=== PATIENT | female | born 2000 | race Caucasian/White ===

== ENCOUNTER 2022-04-07 01:34 | Emergency (ER) | payer OTHER, SELFPAY ==
[2022-04-07 05:36] LABS: Appearance Urine Clear; Color Urine Yellow; Glucose Urine UA Negative (Negative); Leukocyte Esterase Urine Trace (Negative); Nitrite Urine Negative (Negative); Urine Blood Trace (Negative); Urine Ketones Trace mg/dL (Negative); Urine Protein Negative (Neg-Trace)
[2022-04-07 05:41] LABS: Bacteria Urine None Seen (None Seen); Hyaline Casts Urine 0-2 /LPF (0-2); WBC Urine 0-5 /HPF (0-5)
[2022-04-07 05:54] LABS: COVID-19 Test Negative (Negative)
[2022-04-07 06:18] VITALS: BP 119/68; BP 142/90; PULSE 132; PULSE 152; RESP 22; TEMP 38.7; O2SAT 98; O2SAT 99; BMI 34.4
[2022-04-07 06:36] VITALS: BP 132/69; PULSE 95; RESP 18; TEMP 36.8; O2SAT 98
== END 2022-04-07 06:39 | disposition home or self-care (01) ==
PROVIDERS: Emergency Provider Emergency Medicine
DX: B34.9 Viral infection, unspecified (principal); R50.9 Fever, unspecified; Z20.822 Contact with and (suspected) exposure to COVID-19
CPT/HCPCS: 81001; 87635; 99282; 99283

== ENCOUNTER 2023-12-17 23:04 | Emergency (ER) | payer OTHER, SELFPAY ==
[2023-12-17 23:10] VITALS: BP 160/90; PULSE 88; O2SAT 98
[2023-12-17 23:12] VITALS: BP 137/80; PULSE 154; RESP 18; TEMP 36.2; O2SAT 99; BMI 29.0
--- NOTE | 2023-12-17 23:28 | ECG_ITS ---
Test Reason : ANXIETY Blood Pressure : / mmHG Vent. Rate : 126 BPM Atrial Rate : 000 BPM P-R Int : 000 ms QRS Dur : 078 ms QT Int : 410 ms P-R-T Axes : 000 057 060 degrees QTc Int : 593 ms Sinus tachcyardia Nonspecific ST-T changes. Abnormal ECG No previous ECGs available Referred By: Sam Jiménez Electronically Signed By:Jeffery Kelly
--- NOTE | 2023-12-18 00:11 | ED_ITS ---
HPI - General Adult General Chief complaint: Behavioral Concerns Stated complaint: bug bite, hx of panic attacks, feels one coming on Time Seen by Provider: 12/17/23 23:19 Source: patient Mode of arrival: ambulatory Limitations: no limitations History of Present Illness HPI narrative: 23 yold female with pmh of Aspergers syndrome and panic disorder presens to the ED for panic attack. Patient states she had a panic attack after being bit by her bug on the right thigh. Patient states her cat was chasing around the park and the bug landed on the patient the on right thigh. Patient states she has severe anxiety around bugs so she started screaming and panicking. Patient called ambulance due to panic attack. Related Data Allergies Allergy/AdvReac Type Severity Reaction Status Date / Time No Known Allergies Allergy Verified 12/17/23 23:17 Review of Systems Review of Systems: panic attack. anxiety. roight thigh bug bite Yes all other systems are reviewed and are negative PMFSH Social History Social History Smoked in Last 30 Days: No Use of substances other than those prescribed or required for medical reasons: No Advance Directives: No Advance Directives Information Provided: No Do you have a plan to hurt others: No Plan Physical Exam ED Vital Signs: Vital Signs - 24 hr 12/17/23 23:12 12/18/23 04:15 12/18/23 06:15 Temperature 97.1 F 97.9 F 98.2 F Pulse Rate 154 H 139 H 88 Respiratory Rate 18 16 16 Blood Pressure 137/80 124/78 130/70 Pulse Oximetry 99 100 100 Oxygen Delivery Method Room Air Room Air BMI result Body Mass Index 29.0 Const General: cooperative, healthy appearing, comfortable, no acute distress, well developed, alert and awake Orientation/consciousness: oriented to person, oriented to place, oriented to time and patient oriented x3 HENMT Head: Yes normal to inspection, Yes No palpable skull fracture present and Yes normocephalic Eyes General: appearance normal, both eyes and all related structures Neck Neck: Yes normal visual inspection, Yes full ROM, Yes no lymphadenopathy, Yes no meningeal signs, Yes trachea midline, Yes supple, No anterior neck swelling and No tender Chest Chest palpation & inspection: normal inspection of the chest and normal palpation of entire chest wall Resp Effort & Inspection: normal respiratory effort and able to speak in complete sentences Auscultation: clear to auscultation bilaterally Cardio Jugular venous distension: no JVD Heart sounds: S1 normal heart sound present and S2 normal heart sound present GI Inspection: Yes normal to inspection Palpation (GI): Soft to palpation, not firm, nontender, no guarding and not rigid General: Yes no CVA tenderness Back/Spine/Pelvis Back: no CVA tenderness and No back tenderness Skin General skin exam: no rashes or lesions noted, elasticity normal and turgor normal Neuro General: oriented to person, oriented to place, oriented to time, patient oriented x3, gait normal, tone normal, moves all extremities, Normal light touch and pain sensation, no meningeal signs, no focal motor deficits, CN's II-XI intact bilaterally and normal sensation to monofilament Extrem Other: Right thigh negative for signs of bite. Right lower extremity negative for edema, bite vincent, fluctuance, hives, mass or mass palpation, warmth, deformity, or crepitus. Right lower extremity normal motor/neuro/vascular exam intact. Left lower extremity: Motor/neuro/vascular exam intact. Normal. General: Yes normal to inspection, Yes full ROM and Yes capillary refill normal Psych Appearance: grossly normal, well kempt and not disheveled Medical Decision Making Medical Decision Making MDM Narrative: 23-year-old female presents to ED panic attack after bug bite. Physical exam negative for signs of allergic reaction or cellulitis from insect bite. Patient's tachycardia to severe anxiety. Patient moves around around talking and crying. EKG showed sinus tach. Patient now calm. EKG heart 126. NO Further evaluation. Not suspecting dehydration, PE, myocardial infarction, Pne umonia, pneumo/hemothorax electrolyte deficiency.. Patient does not want meds to calm her down. Patient will self soothe. Patient was sleeping in the morning be discharged. Patient has no ride home. Negative for signs of cellulitis, allergic reaction, anaphylaxis. Patient does not need care team. patient is sleeping in bed. Differential Diagnosis Differential Diagnoses: The differential diagnosis associated with the presentation includes (Panic attack, anxiety, bug bite.) Admission/Observation Consideration of admission/observation: Escalation of care including admission/observation considered Independent Interpretation I performed an independent interpretation of an: EKG (Accelerated junctional rhythm. Ventricular rate 126) Independent Historian Clinical information obtained from an independent historian. History obtained from or confirmed by: Other (patient) External Record Review External record reviewed: Other (prior visits) Discharge Plan Discharge Clinical Impression: Panic disorder Patient Disposition: Home, Self-Care Instructions: Panic Disorder (ED), Anxiety (ED) Additional Instructions: Return to the ED for any redness, pus discharge, foul odor, swelling, mass, calf pain, chest pain, shortness breath, bluish discoloration, fever, chills home half-way earlier tongue, or any other concerning symptoms. Recommend follow- up with primary care provider. Interventions: ED Discharge Assessment Last Done: 12/18/23 06:15 Discharge Date/Time: 12/18/23 06:16 Print Language: Barbadian
[2023-12-18 04:15] VITALS: BP 124/78; PULSE 139; RESP 16; TEMP 36.6; O2SAT 100
[2023-12-18 06:15] VITALS: BP 130/70; PULSE 88; RESP 16; TEMP 36.8; O2SAT 100
== END 2023-12-18 06:16 | disposition home or self-care (01) ==
PROVIDERS: Emergency Provider Emergency Medicine Emergency Medical Services
DX: F41.0 Panic disorder [episodic paroxysmal anxiety] (principal); F84.5 Asperger's syndrome
CPT/HCPCS: 93005; 99283; 99284

== ENCOUNTER → 2023-12-17 23:28 | Outpatient (BNV) | payer OTHER, SELFPAY | PROVIDERS: Emergency Provider Emergency Medicine Emergency Medical Services; Visit Provider Internal Medicine Cardiovascular Disease | DX: R94.31 Abnormal electrocardiogram [ECG] [EKG] (principal) | CPT/HCPCS: 93010 ==

== ENCOUNTER 2025-01-14 13:24 | Outpatient (AMB) | payer OTHER, SELFPAY ==
--- NOTE | 2025-01-14 13:39 | A.OFFVIS_ITS ---
VS Expanded 01/14/25 14:06 01/21/25 11:58 Height 5 ft 6 in 5 ft 6 in Weight 151 lb 0.2 oz 151 lb BMI 24.4 24.4 Intake Visit Reasons: Decreased appetite/ wt loss Allergies No Known Allergies Allergy (Verified 12/17/23 23:17) Nutrition Presentation Details: Pt presents for MNT for decreased appetite and weight loss Per doctors's note Pt has lost 30 lbs in a yrs time, and in 12/2023 at 172 lb, 11/2024 at 145 lbs and Wt today 01/2025 at 152 lbs Pt reports living by self, reports having hx of fear of food related to increased GERD sx including vomiting and not able to tolerate anything due to vomiting. Pt reports gradually including some soft foods. Pt reports meeting with a therapist as well d/t anxiety/fears Reports vomiting last night trying to get rid of tonsil stone Physical activity: daily life activities MVI - not taking has 3 ensure a day everyday plus other soft foods 24 hr food recall AM ensure (240 calorie, 8 g prot, 30 g carb) snack pudding cups with whipped cream (has 2 /day ) ad ensure dinner instant mashed potato with sour cream and ensure last night bowl of ice cream Pt has hx of Pre DM, Asperger Syndrome, PTSD, anxiety BS Monitoring Most Recent Diabetes Results: No Data to Display YTK-Ikhkuuf-Yn.Jeor Equation Height: 5 ft 6 in Weight: 151 lb Resting Metabolic Rate: 1447.99 Calculated Activity Level: Sedentary Calories Needed to Maintain Weight: 1737.59 Diagnosis Nutrition problem #1: inadequate protein energy (and inadequate food variety(protein/fruits/vegs)) As related to (etiology) #1: other (fear of trying new foods ) As evidenced by (sign/symptom) #1: other (related to hx of GERD symptoms leading to vomiting and wt loss) [facility] Medical History (Updated 01/21/25 @ 12:27 by Jayla Johnson, RD, LDN) Anxiety Asperger syndrome Pre-diabetes Assessment & Plan Assessment & Plan (1) Decreased appetite: Code(s): R63.0 - Anorexia Category: Medical Plan: Wt: 68 Kg ( 01/2025 ) Est kcal needs as per MSJ: 5756-2820 (40% carb, 30% protein/fat) Est fluid needs as per 25-30 ml/d: 1700 Est prot per day as per 1 g/kg bw: 50-70g Recommend fiber intake : 8-10 g per day and gradually increase to 14 g per 1000 calories Recommend sodium intake per day : less than 2300 mg Educated patient on: ( R = reviewed V = verbalizes understanding N/R = needs review N/A = not applicable * Working on including protein foods in current diet : Review * working on including soft fruits in the diet for fiber: R Next visit - Discuss switching to higher protein ensure option * Patient Instructions: Try to include lean protein food : example canned chicken or chicken in a pouch with canned carrots and instant mashed potato 1-2 scrambled eggs with 1 tbsp of spam (for flavor) and mashed potato snack try chobani yogurt and applesauce Coding Level of Care Code Nutr Indiv Intake (73114) Diagnoses Decreased appetite R63.0 Time Spent (min) 30
[2025-01-14 14:06] VITALS: BMI 24.4
[2025-01-21 11:58] VITALS: BMI 24.4
== END 2025-01-14 14:21 | disposition home or self-care (01) ==
LOC: HO.ENCR 13:25
PROVIDERS: PCP Family Medicine; Visit Provider Dietitian, Registered
DX: R63.0 Anorexia (principal)

== ENCOUNTER → 2025-01-14 13:24 | Outpatient (BNVA) | payer OTHER, SELFPAY | PROVIDERS: PCP Family Medicine; Visit Provider Dietitian, Registered | DX: R63.0 Anorexia (principal); R63.4 Abnormal weight loss; K21.9 Gastro-esophageal reflux disease without esophagitis; Z71.3 Dietary counseling and surveillance; Z68.24 Body mass index [BMI] 24.0-24.9, adult | CPT/HCPCS: 97802 ==

== ENCOUNTER 2025-06-25 09:55 | Outpatient (AMB) | payer OTHER, SELFPAY ==
--- NOTE | 2025-06-25 10:15 | A.OFFVIS_ITS ---
VS Expanded 06/25/25 10:18 Height 5 ft 6 in Weight 171 lb 1.259 oz BMI 27.6 Intake Visit Reasons: weight loss Allergies No Known Allergies Allergy (Verified 12/17/23 23:17) Nutrition Presentation Details: Pt presents for MNT follow-up Patient brings food record Meals continue to be the same, 3 Ensure original per day, pudding, instant mashed potatoes made with water and sour cream, popsicle. Patient reports fear of trying new foods, reports she is afraid of gagging. She is contemplating using a event specialist food demonstrator to try new foods with soft consistency. Patient reports working with a therapist for his helping her with trying new foods Reviewed importance of getting foods with protein, patient reads food labels very well and currently patient is not getting sufficient protein, she admits of increased intake of sweets thus leading to almost 20 lb weight gain since the last visit yogurt chobani with 15-20g protein (strained ) started this past week 24 hr food recall AM ensure (240 calorie, 8 g prot, 30 g carb) snack pudding cups with whipped cream (has 2 /day ) ad ensure dinner instant mashed potato with sour cream and ensure last night bowl of ice cream Pt has hx of Pre DM, Asperger Syndrome, PTSD, anxiety PFSH Medical History (Updated 01/21/25 @ 12:27 by Jayla Johnson, RD, LDN) Anxiety Asperger syndrome Pre-diabetes Assessment & Plan Assessment & Plan (1) Decreased appetite: Code(s): R63.0 - Anorexia Category: Medical Plan: Patient lacking protein in the diet, choosing carbohydrate sources of foods with minimal protein intake. It appears this has contributed to weight gain, 20 lb over 5 months. Patient reports working with a therapist Wt: 68 Kg ( 01/2025 ), 77 kg (07/08) Est kcal needs as per MSJ: 6925-1549 (40% carb, 30% protein/fat) Est fluid needs as per 25-30 ml/d: 1700 Est prot per day as per 1 g/kg bw: 50-70g Recommend fiber intake : 8-10 g per day and gradually increase to 14 g per 1000 calories Recommend sodium intake per day : less than 2300 mg Educated patient on: ( R = reviewed V = verbalizes understanding N/R = needs review N/A = not applicable * Working on including protein foods in current diet : Review * working on including soft fruits in the diet for fiber: R Next visit - Discuss switching to higher protein ensure option * Patient Instructions: Have a fairlife protein shake (replacing one Ensure original) per day (fair life protein shake has higher protein amount and less carbohydrates than the Ensure or original) Try banana with the protein shake - working on different flavors, textures Add 1-2 eggs to the rice , ok to blenderize after cooked with vegetable broth or chicken broth Reduce on sugars (popsicles , candies, sugary drinks) Coding Level of Care Code Nutr Indiv Subseq (10620) Diagnoses Decreased appetite R63.0 Time Spent (min) 30
[2025-06-25 10:18] VITALS: BMI 27.6
--- OUTSIDE RECORDS SUMMARY | 2025-06-25 11:36 | XMS_ITS | Clinical Summary ---
Author Organization [facility] Address [address] [place] [address] Care Team Providers Care Contract Design Agent Name Role Phone TamekaShayan Primary Care Provi gasper Allergies Active Allergy Reactions Criticality Noted Date Comments Sertraline Lightheadedness 02/03/2025 Medications * This document contains information received from the source organization and may not represent a complete record from that organization. No known medications Social History Tobacco Use Types Packs/Day Years Used Date Smoking Tobacco: Never Assessed Comments Unknown Sex and Gender Information Value Date Recorded Sex Assigned at Female 01/14/2025 9:33 AM EDT Legal Sex Female 8:29 AM EST Gender Identity Not on file Sexual Orientation Not on file Plan of Treatment Health Maintenance Due Date Last Done Comments HIV Screening 1999 Hepatitis C Screening 1999 Pap Smear 10/17/2023 10/16/2020 Alcohol/Substance Use Screening 08/14/2024 Depression Screening and Follow-Up 08/14/2024 Social Drivers of Health Mary ual Screening 08/14/2024 COVID-19 Vaccine ( - 2024-2 6 season) 2025 09/16/2021, 02/11/2021, 01/21/2021 Influenza Vaccine (#1) 2025 , 06/16/2020, 06/24/2019, Additional history exists DTaP,Tdap,and Td Vaccines (9 - Td or Tdap) 08/09/2034 08/09/2024, 06/15/2019, 03/22/2012, Additional history exists Hepatitis B Vaccines Completed 11/23/2000, 02/22/2000, 1999 Pneumococcal Vaccine: Pediat myranda (0-5 Years) and At-Risk Patients (6-50 Years) Completed 11/23/2000, 08/21/2000, 05/17/2000 HPV Vaccines Completed 10/03/2011, 05/14, 03/21/2011 Varicella Vaccines Completed 03/22/2012, 08/21/2000 Insurance [employer] Care Teams Contract Design Agent Relationship Specialty Start Date End Date Shayan English [address] [facility] [place] [phone] PCP - General 01/14/25
--- OUTSIDE RECORDS SUMMARY | 2025-06-25 11:36 | XMS_ITS | Clinical Summary ---
Author Organization [facility] Address [address] [place] [phone] Phone Care Team Providers Care Income Tax Investigator Name Role Phone Lauren Lara DO Primary Care Provider Unavaila ble Immunizations Immunization Administration Dates Next Due DTaP 5 11/25/2004, 1,02/22/2000,12/19,1999 H1N1 Nasal 05/28/2009 HPV, Quadrivalent 10/03/2011,05/31/2011,03/21/20 11 Hep B, ped/adol 11/23/2000,02/22/2000,1999 Hib (PRP-T) 11/23/2000, 0,1999,10/17 IPV 11/25/2004, 1,1999,10/17 Influenza, injectable, triva lent, preservative free 04/28/2014,05/25/2013,07/25/2012 MMR 11/25/2004,08/21/2000 Meningococcal Conj (Menactra) MCV4P 03/22/2012 Pneumococcal Conjugate 11/23/2000,08/21/2000,11/1999 Tdap 03/22/2012 Varicella 03/22/2012,08/21/2000 Social History Tobacco Use Types Packs/Day Years Used Date Smoking Tobacco: Never Comments:Never Smoker Comments Unknown Sex and Gender Information Value Date Recorded Sex Assigned at Not on file Legal Sex Female 6:35 PM EDT Gender Identity Not on file Sexual Orientation Not on file Last Filed Vital Signs Vital Sign Reading Time Taken Comments Blood Pressure - - Pulse 96 03/19/2013 10:53 AM EDT Temperature 36.8 C (98.3 F) 04/28/2014 8:24 AM EDT Respiratory Rate - - Oxygen Saturation - - Inhaled Oxygen Concentration - - Weight 82.6 kg (182 lb) 04/28/2014 8:24 AM EDT Height 165.1 cm (5' 5 ) 04/28/2014 8:24 AM EDT Body Mass Index 30.29 04/28/2014 8:24 AM EDT Plan of Treatment Health Maintenance Due Date Last Done Comments DTaP,Tdap,and Td Vaccines (7 - Td or Tdap) 03/22/2022 03/22/2012, 11/25/2004, 02/27/2001, Additional history exists Influenza Vaccines (#1) 2025 06/24/20, 09/12/2017, 05/03/2016, Additional history exists COVID-19 Vaccine ( season) 2025 HIB Vaccines Completed 11/23/2000, 11/12, 02/22/2000, Additional history exists Hepatitis B Vaccines Completed 11/23/2000, 02/22/2000, 1999 Pneumococcal Vaccine Completed 11/23/2000, 08/21/2000, 05/17/2000 IPV Vaccines Completed 11/25/2004, 02/11, 11/23/2000, Additional history exists MMR Vaccines Completed 11/25/2004, 08/21/2000 HPV Vaccines Completed 10/03/2011, 05/14, 03/21/2011 Varicella Vaccines Completed 03/22/2012, 08/21/2000 Meningococcal Vaccine Completed 05/17/2016, 012 Hepatitis A Vaccines Aged Out No long er eligible based on patient's age to complete this topic Men B Vaccine Aged Out No longer elig ible based on patient's age to complete this topic Care Teams Income Tax Investigator Relationship Specialty Start Date End Date Lauren Lara DO PCP - General 12/20/17
--- OUTSIDE RECORDS SUMMARY | 2025-06-25 11:36 | XMS_ITS | Encounter Summary ---
Author Organization [facility] [place] [address] Care Team Providers Care Keyboard Specialist Name Role Phone Shayan English MD Primary Care Pr ovider Encounter Details Date Type Department Care Team (Late st Contact Info) Description 08/09/2024 Nurse Triage Adult Medicine [address] [phone] Shirin Gordon RN Social History Tobacco Use Types Packs/Day Years Used Date Smoking Tobacco: Never Smokeless Tobacco: Never Alcohol Use Standard Drinks/Week Comments No 0 (1 standard drink = 0.6 oz pur e alcohol) Comments Unknown Sex and Gender Information Value Date Recorded Sex Assigned at Female 01/15/2025 3:02 PM EDT Legal Sex Female 7:22 AM EST Gender Identity Female 01/15/2025 3:02 PM EDT Sexual Orientation Straight 01/15/2025 3: 28 PM EDT documented as of this encounter Plan of Treatment Not on file documented as of this encounter Visit Diagnoses Not on filedocumented in this encounter Care Teams Keyboard Specialist Relationship Specialty Start Date End Date Shayan English MD [address] [place] [address] PCP - General Internal Medicine 07/10/24 documented as of this encounter
--- OUTSIDE RECORDS SUMMARY | 2025-06-25 11:36 | XMS_ITS | Encounter Summary ---
Author Organization [facility] Address [address] [place] [phone] Phone Care Team Providers Care Product Lister Name Role Phone Lauren Lara DO Primary Care Provider Unavaila ble Encounter Details Date Type Department Care Team (Late st Contact Info) Description 02/08/2011 Conversion Encounter [facility] [address] [place] [address] Dr Sharp [id number] Social History Tobacco Use Types Packs/Day Years Used Date Smoking Tobacco: Never Assessed Comments Unknown Sex and Gender Information Value Date Recorded Sex Assigned at Not on file Legal Sex Female 6:35 PM EDT Gender Identity Not on file Sexual Orientation Not on file documented as of this encounter Plan of Treatment Not on file documented as of this encounter Visit Diagnoses Not on filedocumented in this encounter Care Teams Product Lister Relationship Specialty Start Date End Date Lauren Lara DO PCP - General 12/20/17 documented as of this encounter
--- OUTSIDE RECORDS SUMMARY | 2025-06-25 11:36 | XMS_ITS | Clinical Summary ---
Author Organization [facility] Address [address] [place] [address] Phone Care Team Providers Care Retail Wireless Associate Name Role Phone Shayan English MD Primary Care Pr ovider Allergies Active Allergy Reactions Criticality Noted Date Comments Montelukast 10/30/2014 Throat felt tight and swollen Sertraline Dizziness,GI intolerance,Headache Medium 09/22/2020 Medications LORazepam (ATIVAN) 0.5 mg tablet Take 1 tablet (0.5 mg total) by mouth 1 (one) time each day if needed. 4 Active omeprazole (PriLOSEC) [address] capsule Take 1 capsule (20 mg total) by mouth 1 (one) time each day. Do not crush or chew. 30 each 5 5 Active metFORMIN XR (GLUCOPHAGE-XR) 500 mg 24 hr tablet TAKE 1 TABLET BY MOUTH DAILY WITH BREAKFAST 28 tablet 5 Active Active Problems Problem Noted Date Diagnosed Date Chronic tachycardia 07/10/2024 Assessment & Plan (07/10/2024 2:54 PM EST): Stable. largely asymptomatic. Rate today is 103. Holter monitor was ordered in December which was not scheduled or completed. Will defer reorder for now. Last CBC was unremarkable Nahid thyroiditis 07/10/2024 Overview (07/10/2024): Currently euthyroid; previous subclinical hypothyroidism Anxiety 06/26/2024 Overview (10/30/2024): Assessment & Plan (07/10/2024 2:54 PM EST): Continue follow up with psychiatry at [facility] ([facility]) Continue risperidone BID, Lexapro daily, ativan 0.5mg as needed Continue weekly therapy Asperger syndrome 06/26/2024 Overview (06/26/2024): neg fragile x, nl chromsomes; nl amino acids Assessment & Plan (07/10/2024 2:54 PM EST): Continue follow up with psychiatry at [facility] ([facility]) Continue risperidone BID, Lexapro daily, ativan 0.5mg as needed Continue weekly therapy Constipation 06/26/2024 Overview (10/30/2024): Panic attack 03/27/2020 Assessment & Plan (07/10/2024 2:54 PM EST): Continue follow up with psychiatry at [facility] ([facility]) Continue risperidone BID, Lexapro daily, ativan 0.5mg as needed Continue weekly therapy PTSD (post-traumatic stress disorder) 03/27/2020 Assessment & Plan (07/10/2024 2:54 PM EST): Continue follow up with psychiatry at [facility] ([facility]) Continue risperidone BID, Lexapro daily, ativan 0.5mg as needed Continue weekly therapy Gastroesophageal reflux disease without esophagi tis 11/09/2016 Overview (10/30/2024): Acne 10/30/2014 Overview (10/30/2024): Cerebral lesion Overview (10/30/2024): ?focal gliosis and T2 hyperintensity in subcortical white matter; stable; rpt yearly; seen by Dr. 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 syncope; seen by Dr. 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 Culver; [place]; as of 10/26 followed by Michelle Craig in [place] Last Assessment & Plan: Continue Aygestin daily. No side effects. Rx refilled. Can follow up in one year or sooner prn. Elevated TSH 05/22/2024 07/10/2024 Overview (06/26/2024): Consult with Endo in 01/2021 - repeat TSH normalized. Elevated again 05/2024, plan for repeat in 2 months for monitoring (order placed) Prediabetes 01/11/2024 10/31/2024 Assessment & Plan (07/10/2024 2:54 PM EST): Well controlled. Will permanently DC metformin which she has not used in about 6 months Overweight (BMI 25.0-29.9) 09/24/2021 1 09/09/2023 Immunizations Immunization Administration Dates Next Due DTaP (Infanrix) 6wks to less than 7yo ,02/27/2001,02/22/2000,12/19,1999 DRnN-ABK-ONE (Pentacel) 2mo to less than 5yo 11/23/2000,02/22/2000,1999,10/17 HPV, Quadrivalent 10/03/2011,05/31/2011,03/21/20 11 Hepatitis B Pediatric (Enger ix B; Recombivax HB) to less than 20 yo 11/23/2000,02/22/2000,1999 IPV Inactivated polio (Ipol) 6wks and older 11/25/2004,02/27/2001,1999,10/17 Influenza Quadravalent, MDCK , 0.5ml, preservative free (Flucelvax) 6mo and older 06/24/2019 Influenza trivalent, 0.5mL, preservative free (Fluarix; FluLaval; Fluzone) ages 6mo and older (Afluria) 3 years and older 05/27/2021,06/16/2020,06/18/2018,09/12,05/03/2016,05/05/2015,07/25/2012 Influenza, Unspecified 06/16/2020 Influenza, live, intranasal, trivalent (FluMist) 2yo to less than 50yo 05/28/2009 MMR, measles mumps and rubel la Live (Priorix; M-M-R II) 12mo and older 11/25/2004,08/21/2000 Meningococcal MCV4P 05/17/2016,03/22/2012 Pneumococcal Conjugate Vacci ne, 7 Valent 11/23/2000,08/21/2000,05/17/2000 Tdap Tetanus diptheria acell ular pertussis (Boostrix; Adacel) 7yo and older 08/09/2024,06/14/2019,03/22/2012 Varicella live (Varivax) 12m o and older 03/22/2012,08/21/2000 Surgical History Surgery Date Site/Laterality Comments OTHER SURGICAL HISTORY 02/13 bilateral tibial nodules removed; deep granuloma anulare on patholgy Medical History Medical History Date Comments Constipation Anxiety Asperger syndrome 08/14/2008 neg fragile x, nl chromsomes; nl amino acids RAD (reactive airway disease) 04/14/2014 : trial of singulair for cough Cerebral lesion 09/14, 06/14, 06/15, 12/15, 03/19 ?focal gliosis and T2 hyperintensity in subcortical white matter; stable; rpt yearly; seen by Dr. 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; no meds CP (cerebral palsy) ([facility] V24, [facility] V28) spastic diplegia FTT (failure to thrive) in infant DX:FTT (failure to thrive) i n ; COMMENT: hypo and hyperglycemia; resolved; neg genetic and gi w/u Fracture 6th grade DX:Fracture; COM MENT: right arm and left leg fracture going upstairs Left forearm fracture 08/14/2009 DX:Left fo rearm fracture; COMMENT: ?left wrist per old records, arm per pt Type 2 diabetes mellitus wit h obesity 07/12/2021 Overweight (BMI 25.0-29.9) 09/24/2021 Family History * Patient is adopted Medical History Relation Name Comments Other: unknown Other adopted Breast cancer Neg Hx Ovarian cancer Neg Hx Uterine cancer Neg Hx Relation Name Status Comments Father Mother Other Social History Tobacco Use Types Packs/Day Years Used Date Smoking Tobacco: Never Smokeless Tobacco: Never Tobacco Cessation:Counseling Given: Not Answered Alcohol Use Standard Drinks/Week Comments No 0 (1 standard drink = 0.6 oz pur e alcohol) Comments No Sex and Gender Information Value Date Recorded Sex Assigned at Female 01/15/2025 3:02 PM EDT Legal Sex Female 7:22 AM EST Gender Identity Female 01/15/2025 3:02 PM EDT Sexual Orientation Straight 01/15/2025 3: 28 PM EDT Obstetrics History Para Term AB IAB SAB Ectopic Multiple Livin g Live Births 0 0 0 0 0 0 0 0 Last Filed Vital Signs Vital Sign Reading Time Taken Comments Blood Pressure 100/60 12/18/2024 10:01 AM EDT Pulse 91 12/18/2024 10:01 AM EDT Temperature 36 C (96.8 F) 12/18/2024 10:01 AM EDT Respiratory Rate 16 12/18/2024 10:01 AM EDT Oxygen Saturation 99% 10/31/2024 2:00 PM EDT Inhaled Oxygen Concentration - - Weight 68 kg (150 lb) 01/13/2025 2:35 PM EDT Height 167.6 cm (5' 6 ) 01/13/2025 2:35 PM EDT Body Mass Index 24.21 01/13/2025 2:35 PM EDT Plan of Treatment Health Maintenance Due Date Last Done Comments Pneumococcal Vaccine: Pediatrics (0 to 5 Years) and At-Risk Patients (6 to 49 Years) (1 of 1 - PPSV23, PCV20, or PCV21) 2005 11/23/2000, 08/21/2000, 05/17/2000 HIV Screening 07/23/2022 Social Influencers of Health Screening 07/23/2022 Cervical Cancer Screening: Pap Smear 10/17/2023 10/16/2020, 10/16/2020, 10/16/2020 Depression Screening 08/14/2024 Diabetes: Blood Sugar Control Test (HGBA1C) 11/15/2024 05/17/2024, 05/17/2024 COVID-19 Vaccine ( season) 2025 09/16/2021, 02/11/2021, 01/21/2021 Diabetes: Annual Urine Albumin-Creatinine Ratio (uACR) 05/20/2025 05/20/2024 Diabetes: Annual GFR (Glomerular Filtration Rate) 10/31/2025 10/31/2024, 05/17/2024, 05/17/2024 Cholesterol Screening (Lipid Panel) 05/17/2029 05/17/2024, 05/17/2024 DTaP,Tdap,and Td Vaccines (9 - Td or Tdap) 08/09/2034 08/09/2024, 06/14/2019, 03/22/2012, Additional history exists RSV Immunization Adult Patients (1 - 1-dose 75+ series) 2074 HIB Vaccines Completed 11/23/2000, 02/11, 1999, Additional history exists Hepatitis B Vaccines Completed 11/23/2000, 02/22/2000, 1999 IPV Vaccines Completed 11/25/2004, 02/11, 11/23/2000, Additional history exists MMR Vaccines Completed 11/25/2004, 08/21/2000 HPV Vaccines Completed 10/03/2011, 05/14, 03/21/2011 Varicella Vaccines Completed 03/22/2012, 08/21/2000 Meningococcal ACWY Vaccine Completed 05/17/2016, Influenza Vaccine Discontinued 05/27/2021, , 06/16/2020, Additional history exists Hepatitis C Screening Completed 07/10/2024 Gonorrhea/Chlamydia Screening Discontinued 10/10/2024, 11/23/2018 Diabetes: Annual Foot Exam Discontinued Diabetes: Annual Retina Eye Exam Discontinued Hepatitis A Vaccines Aged Out No long er eligible based on patient's age to complete this topic Meningococcal B Vaccine Aged Out No l onger eligible based on patient's age to complete this topic RSV Immunization Patients Under 20 months Aged Out No longer eligible based on patient's age to complete this topic Procedures Procedure Name Priority Date/Time Associated Diagnosis Comments COMPREHENSIVE METABOLIC PANEL Routine 10/31/2024 2:17 PM EDT Pain of left hand Inflammatory arthritis CHLAMYDIA TRACHOMATIS AND NEISSERIA GONORRHOEAE PCR Routine 10/10/2024 1:52 PM EST Acute vaginitis Screen for STD (sexually transmitted disease) HEPATITIS C ANTIBODY Routine 07/10/2024 2:49 PM EST Need for hepatitis C screening test HM URINE ALBUMIN CREATININE RATIO Routine 05/20/2024 HEMOGLOBIN A1C Routine 05/17/2024 LIPID PANEL Routine 05/17/2024 PAP SMEAR Routine 10/16/2020 from Last 3 Months or Most Recently Relevant to Health Maintenance Results * (ABNORMAL) Comprehensive metabolic panel (10/31/2024 2:17 PM EDT) [facility] Sodium 141 133 - 145 mmol/L LAB CHEMISTRY METHOD 10/31/2024 4:51 PM [facility] Potassium 4.1 3.5 - 5.5 mmol/L LAB CHEMISTRY METHOD 10/31/2024 4:51 PM [facility] Chloride 106 96 - 110 mmol/L LAB CHEMISTRY METHOD 10/31/2024 4:51 PM [facility] CO2 28 21 - 32 mmol/L LAB CHEMISTRY METHOD 10/31/2024 4:51 PM [facility] Anion Gap 7 3 - 11 LAB CHEMISTRY METHOD 10/31/2024 4:51 PM [facility] Glucose 136(H) 70 - 100 mg/dL LAB CHEMISTRY METHOD 10/31/2024 4:51 PM [facility] BUN 9 5 - 25 mg/dL LAB CHEMISTRY METHOD 10/31/2024 4:51 PM [facility] Creatinine 0.75 0.50 - 1.10 mg/dL LAB CHEMISTRY METHOD 10/31/2024 4:51 PM [facility] eGFR 113 >=60 mL/min/1. 73m2 LAB CHEMISTRY METHOD 10/31/2024 4:51 PM [facility] Comment:Calculation based on the Chronic Kidney Disease Epidemiology Collaboration (CKD-EPI) equation refit without adjustment for race. BUN/Creatinine Ratio 12.0 LAB CHEMISTRY METHOD 10/31/2024 4:51 PM [facility] Calcium 9.7 8.5 - 10.5 mg/dL LAB CHEMISTRY METHOD 10/31/2024 4:51 PM [facility] AST (SGOT) 10 10 - 42 unit/L LAB CHEMISTRY METHOD 10/31/2024 4:51 PM [facility] ALT (SGPT) 23 10 - 60 unit/L LAB CHEMISTRY METHOD 10/31/2024 4:51 PM EDT [facility] Alkaline Phosphatase 70 42 - 121 unit/L LAB CHEMISTRY METHOD 10/31/2024 4:51 PM EDT [facility] Total Protein 7.1 6.0 - 8.0 g/dL LAB CHEMISTRY METHOD 10/31/2024 4:51 PM EDT [facility] Albumin 3.9 3.2 - 5.0 g/dL LAB CHEMISTRY METHOD 10/31/2024 4:51 PM EDT [facility] Total Bilirubin 0.3 0.0 - 1.4 mg/dL LAB CHEMISTRY METHOD 10/31/2024 4:51 PM EDT [facility] Blood Venous blood specimen / Unknown Venipuncture / Unknown 10/31/2024 2:17 PM EDT 10/31/2024 2:17 PM EDT us Lindsey Skaggs MD LAB BLOOD ORDERABLES Final Resul t [facility] [address] [place] [address], [place] [phone] * Chlamydia trachomatis and Neisseria gonorrhoeae molecular study (10/10/2024 1:52 PM EST) Neisseria gonorrhoeae PCR Negative Negative LAB MOLECULAR DIAGNOSTICS METHOD 10/11/2024 10:45 AM EST [facility] Chlamydia trachomatis PCR Negative Negative LAB MOLECULAR DIAGNOSTICS METHOD 10/11/2024 10:45 AM EST [facility] Swab Vaginal structure / Unknown Non-blood Collection / Unknown 10/10/2024 1:52 PM EST 10/10/2024 1:52 PM EST us Yvonne ANDERSEN LAB MICROBIOLOGY - GENERAL O RDERABLES Final Result Performing Organization Address City/[facility]/ZIP Co de Phone Number [facility] [address] [place] [address], [place] [phone] * Hepatitis C antibody (07/10/2024 2:49 PM EST) Pathologist [facility] Hepatitis C Antibody Negative Negative LAB CHEMISTRY METHOD 07/10/2024 7:11 PM EST [facility] Blood Venous blood specimen / Unknown Venipuncture / Unknown 07/10/2024 2:49 PM EST 07/10/2024 2:49 PM EST Shayan English MD LAB BLOOD ORDERA BLES Final Result [facility] [address] [place] [address], [place] [phone] * HM Urine Albumin Creatinine Ratio (05/20/2024) Pathologist [facility] Urine Albumin Creatinine Ratio Abstracted Historical Provider HEALTH MAINTENANCE Final Result * Hemoglobin A1c (05/17/2024) Pathologist [facility] Hemoglobin A1C 5.2 <=6.5 % Blood Venous blood specimen / Unknown Historical Provider LAB BLOOD ORDERABLES Ashley l Result * Lipid panel (05/17/2024) Pathologist [facility] LDL/HDL Ratio 4 0 - 4 Triglycerides 117 0 - 150 mg/dL Cholesterol 162 0 - 200 mg/dL HDL 45 >=40 mg/dL LDL Cholesterol 94 0 - 100 mg/dL Blood Venous blood specimen / Unknown Historical Provider LAB BLOOD ORDERABLES Ashley l Result * Pap smear (10/16/2020) 10/16/2020 Narrative HISTORICAL TESTING LAB RESULTING AGENCY - 10/20/2020 12:31 PM EST [id number] THINPREP PAP, IMAGED: NEGATIVE FOR SQUAMOUS INTRAEPITHELIAL LESION AND MALIGNANCY . ANGELICA MCDOWELL(ASCP) (CASE ELECTRONICALLY SIGNED 10 20 2020) ADEQUACY: SATISFACTORY ENDOCERVICAL/TRANSFORMATION ZONE COMPONENT PRESENT. SOURCE: THINPREP PAP HPV IF ASCUS, CERVICAL, IMAGED CLINICAL INFORMATION: HPV IF DIAGNOSIS OF ASCUS. PAP HX NEG [Z12.4, Z01.419] Valery HOLT LAB CYTOLOGY ORDERABLES Final Result HISTORICAL TESTING LAB RESULTING AGENCY from Last 3 Months or Most Recently Relevant to Health Maintenance Insurance [facility] [employer] Care Teams Retail Wireless Associate Relationship Specialty Start Date End Date Shayan English MD [address] [place] [address] PCP - General Internal Medicine 07/10/24
== END 2025-06-25 10:48 | disposition home or self-care (01) ==
LOC: HO.ENCR 09:56
PROVIDERS: PCP Family Medicine; Visit Provider Dietitian, Registered
DX: R63.0 Anorexia (principal)

== ENCOUNTER → 2025-06-25 09:55 | Outpatient (BNVA) | payer OTHER, SELFPAY | PROVIDERS: PCP Family Medicine; Visit Provider Dietitian, Registered | DX: R63.0 Anorexia (principal) | CPT/HCPCS: 97803 ==